=== PATIENT | female | born 1945 | race Caucasian/White ===

== ENCOUNTER → 2018-02-07 | Outpatient (CLI) | payer OTHER, MEDICARE ==
[~2018-02-07] MED LIST: 5-HTP100 MG PO; ACETAMINOPHEN-1 EAC1 PO; ACETAMINOPHEN-120 ML PO; ANALGESIC BA28.35 GM; ANALGESIC325 MG PO; ASPIRIN325 OR; B-COMPLEX-VITA1 EACH; BACTROBAN CREAM30 G1 TOP; CARAFATE1 GM/10 ML PO; CIPRO500 MG PO; COREG CR20 MG PO; COREG OR; DEXILANT60 MG OR; DOXYCYCLINE 10100 MG PO; FISH OIL 1,001000 MG; HYDROCHLOROTHIA25 M1 PO; KEFLEX500 MG PO; LUMIGAN2.5 ML; LYRICA 50 MG50 MG; MOBIC15 MG PO; MULTIVITAMINS; NITROSTAT0.4 MG; NORCO 5-325 TA1 EACH PO; OMEPRAZOLE20 M2 PO; POTASSIUM20 PO; PREMARIN0.625 MG PO; PRILOSEC 20 MG20 MG PO; PRILOSEC40 MG PO; PROTONIX40 MG PO; SIMVASTATIN40 MG PO; TOPROL XL25 MG; TRAMADOL 50 MG50 MG; VENTOLIN17 GM INH; VITAMIN D400 UNI1 OR; ZESTRIL20 MG; [UNRECOGNIZED DRUG - OTHER]
--- NOTE | 2018-02-07 11:13 | 2DMMODE ---
[place] [address] 2 D/M-MODE ECHOCARDIOGRAM Name: SHAN VERAS Room: [facility]#: [id number] Admission: 02/07/18 Attend Phys: Max Landers, Discharge: Date of : 49 Date of Service: 02/07/18 1113 Report #: [id number] THIS REPORT FOR: //name// APPROVED REPORT Study performed: 02/07/2018 10:01:24 EXAM: Comprehensive 2D, Doppler, and color-flow Echocardiogram Patient Location: Out-Patient Status: routine BSA: 1.56 HR: 60 bpm BP: 112/60 mmHg Other Information Study Quality: Good Indications Aortic Insuff. 2D Dimensions LVEF(%): 76.84 (>50%) IVSd: 11.47 (7-11mm) LVOT Diam: 19.67 (18-24mm) LVDd: 43.04 mm PWd: 9.71 (7-11mm) Ascending Ao: 26.97 (22-36mm) LVDs: 23.58 (25-40mm) Aortic Root: 24.37 mm Mckeon's LVEF: 76.84 % Volumes Left Atrial Volume (Systole) LA ESV Index: 17.30 mL/m2 Aortic Valve AoV Peak Saran.: 1.82 m/s AO Peak Gr.: 13.27 mmHg LVOT Max P.31 mmHg AO Mean Gr.: 6.93 mmHg LVOT Mean P.88 mmHg LVOT Max V: 1.04 m/s AO V2 VTI: 39.34 cm LVOT Mean V: 0.62 m/s IDRIS (VTI): 1.88 cm2 LVOT V1 VTI: 24.38 cm AI [place]: 2.64 m/s2 AI PHT: 434.63 [place] [address] 2 D/M-MODE ECHOCARDIOGRAM Name: SHAN VERAS Room: [facility]#: [id number] Admission: 02/07/18 Attend Phys: Max Landers, Discharge: Date of : 49 Date of Service: 02/07/18 1113 Report #: [id number] E/A Ratio: 0.88 MV Decel. Time: 275.57 ms MV E Max Saran.: 0.90 m/s MV PHT: 79.91 ms MVA (PHT): 2.75 cm2 TDI E/Lateral E': 12.86 E/Medial E': 9.00 Medial E' Saran.: 0.10 m/s Lateral E' Saran.: 0.07 m/s Pulmonary Valve PV Peak Saran.: 0.88 m/s PV Peak Gr.: 3.10 mmHg Tricuspid Valve TR Peak Gr.: 18.40 mmHg RVSP: 23.40 mmHg Left Ventricle The left ventricle is normal size. The left ventricle is normal size. There is normal LV segmental wall motion. Mild concentric left ventricular hypertrophy. There is normal left ventricular wall thickness. Left ventricular systolic function is normal. The left ventricular ejection fraction is within the normal range. LVEF is 65%. The left ventricular diastolic function is normal. Right Ventricle The right ventricle is normal size. The right ventricular systolic function is normal. Atria The left atrium size is normal. The right atrium size is normal. Aortic Valve Aortic valve is mildly calcified. Moderate aortic regurgitation. There is no aortic valvular stenosis. Mitral Valve The mitral valve is normal in structure. There is no mitral valve regurgitation noted. No evidence of mitral valve stenosis. Tricuspid Valve The tricuspid valve is normal in structure. Mild tricuspid regurgitation. The RVSP is __23.4 mmHg[place] [address] 2 D/M-MODE ECHOCARDIOGRAM Name: SHAN VERAS Room: [facility]#: [id number] Admission: 02/07/18 Attend Phys: Max Landers, Discharge: Date of : 49 Date of Service: 02/07/18 1113 Report #: [id number] The pulmonary valve is normal in structure. There is no pulmonic valvular regurgitation. Great Vessels The aortic root is normal in size. IVC is normal in size and collapses with >50% inspiration Pericardium There is no pericardial effusion. <Conclusion> LVEF is 65%. There is normal LV segmental wall motion. Aortic valve is mildly calcified. There is no aortic valvular stenosis. Moderate aortic regurgitation. No evidence of mitral valve stenosis. There is no mitral valve regurgitation noted. Mild tricuspid regurgitation. The RVSP is 23.4 mmHg. <ELECTRONICALLY SIGNED> By: Brett Joyner MD, FACC 02/07/18 1113 1113 111 Brett Joyner MD, FACC /INF
== END ==
LOC: M.ULTRA 01-05 15:40
DX: I08.2 Rheumatic disorders of both aortic and tricuspid valves (principal); I77.9 Disorder of arteries and arterioles, unspecified; G45.9 Transient cerebral ischemic attack, unspecified

== ENCOUNTER → 2019-03-13 | Outpatient (CLI) | payer OTHER, MEDICARE ==
--- NOTE | 2019-03-13 12:42 | 2DMMODE ---
[place] [address] 2 D/M-MODE ECHOCARDIOGRAM Name: EDASHAN Room: [facility]#: [id number] Admission: 03/13/19 Attend Phys: Max Landers, Discharge: Date of : 49 Date of Service: 03/13/19 1242 Report #: [id number] THIS REPORT FOR: //name// APPROVED REPORT Study performed: 03/13/2019 08:33:25 EXAM: Comprehensive 2D, Doppler, and color-flow Echocardiogram Patient Location: Out-Patient Status: routine BSA: 1.63 HR: 57 bpm BP: 120/70 mmHg Rhythm: NSR Other Information Study Quality: Good Indications Aortic Valve Disease 2D Dimensions IVSd: 11.95 (7-11mm) LVOT Diam: 18.80 (18-24mm) LVDd: 37.90 mm PWd: 10.96 (7-11mm) Ascending Ao: 28.25 (22-36mm) LVDs: 24.43 (25-40mm) Aortic Root: 31.84 mm Volumes Left Atrial Volume (Systole) LA ESV Index: 34.70 mL/m2 Aortic Valve AoV Peak Saran.: 1.83 m/s AO Peak Gr.: 13.35 mmHg LVOT Max P.23 mmHg AO Mean Gr.: 7.05 mmHg LVOT Mean P.75 mmHg LVOT Max V: 1.03 m/s AO V2 VTI: 42.52 cm LVOT Mean V: 0.59 m/s IDRIS (VTI): 1.65 cm2 LVOT V1 VTI: 25.21 cm AI [place]: 2.23 m/s2 AI PHT: 504.01 ms Mitral Valve E/A Ratio: 0.82 [place] [address] 2 D/M-MODE ECHOCARDIOGRAM Name: SHAN VERAS Room: [facility]#: [id number] Admission: 03/13/19 Attend Phys: Max Landers, Discharge: Date of : 49 Date of Service: 03/13/19 1242 Report #: [id number] MV Decel. Time: 233.53 ms MV E Max Saran.: 0.97 m/s MV PHT: 67.72 ms MVA (PHT): 3.25 cm2 TDI E/Lateral E': 10.78 E/Medial E': 13.86 Medial E' Saran.: 0.07 m/s Lateral E' Saran.: 0.09 m/s Pulmonary Valve PV Peak Saran.: 0.80 m/s PV Peak Gr.: 2.56 mmHg Tricuspid Valve RAP Estimate: 5.00 mmHg TR Peak Gr.: 20.67 mmHg RVSP: 25.00 mmHg PA Pressure: 25.00 mmHg Left Ventricle The left ventricle is normal size. There is normal LV segmental wall motion. There is normal left ventricular wall thickness. Left ventricular systolic function is normal. The left ventricular ejection fraction is within the normal range. LVEF is 60-65%. Grade I - abnormal relaxation pattern. Right Ventricle The right ventricle is normal size. The right ventricular systolic function is normal. Atria Left atrium is moderately dilated. The right atrium size is normal. Aortic Valve Mild aortic valve sclerosis. Mild to moderate aortic regurgitation. Mild aortic stenosis.mean gradient 7mmHg Mitral Valve The mitral valve is normal in structure. Mild mitral regurgitation. No evidence of mitral valve stenosis. Tricuspid Valve The tricuspid valve is normal in structure. Trace tricuspid regurgitation. No pulmonary hypertension[place] [address] 2 D/M-MODE ECHOCARDIOGRAM Name: SHAN VERAS Room: [facility]#: [id number] Admission: 03/13/19 Attend Phys: Max Landers, Discharge: Date of : 49 Date of Service: 03/13/19 1242 Report #: [id number] The pulmonary valve is normal in structure. There is no pulmonic valvular regurgitation. Great Vessels The aortic root is normal in size. IVC is normal in size and collapses >50% with inspiration. Pericardium There is no pericardial effusion. <Conclusion> LVEF is 60-65%. There is normal LV segmental wall motion Mild aortic stenosis. Mild to moderate aortic regurgitation. Mild mitral regurgitation. Grade I - abnormal relaxation pattern. Grade I - abnormal relaxation pattern. Left atrium is moderately dilated. <ELECTRONICALLY SIGNED> By: Brett Joyner MD, FACC 03/13/19 1242 1242 124 Brett Joyner MD, FACC /INF
== END ==
LOC: M.CRD 08:27
DX: I08.0 Rheumatic disorders of both mitral and aortic valves (principal)

== ENCOUNTER → 2021-03-10 | Outpatient (CLI) | payer MEDICARE ==
--- NOTE | 2021-03-10 12:53 | 2DMMODE ---
[place] [address] 2 D/M-MODE ECHOCARDIOGRAM Name: SHAN VERAS Room: [facility]#: [id number] Admission: 03/10/21 Attend Phys: Tamera Ojeda RN Discharge: Date of : 49 Date of Service: 03/10/21 1253 Report #: [id number] THIS REPORT FOR: cc: Vera Finch MD, K. Gay MD Liston, Michael J. MD [facility] ~ APPROVED REPORT Study performed: 03/10/2021 10:31:22 EXAM: Comprehensive 2D, Doppler, and color-flow Echocardiogram Patient Location: Out-Patient BSA: 1.57 HR: 72 bpm BP: 118/70 mmHg Other Information Study Quality: Good Indications Aortic Valve Disease 2D Dimensions IVSd: 9.69 (7-11mm) LVOT Diam: 20.79 (18-24mm) LVDd: 41.83 mm PWd: 9.69 (7-11mm) Ascending Ao: 27.55 (22-36mm) LVDs: 28.86 (25-40mm) Aortic Root: 30.93 mm Volumes Left Atrial Volume (Systole) LA ESV Index: 12.40 mL/m2 Aortic Valve AoV Peak Saran.: 1.96 m/s AO Peak Gr.: 15.30 mmHg LVOT Max P.64 mmHg AO Mean Gr.: 7.58 mmHg LVOT Mean P.10 mmHg LVOT Max V: 1.08 m/s AO V2 VTI: 38.83 cm LVOT Mean V: 0.66 m/s IDRIS (VTI): 2.27 cm2 LVOT V1 VTI: 25.99 cm AI Story: 2.28 m/s2 AI PHT: 477.77 [place] [address] 2 D/M-MODE ECHOCARDIOGRAM Name: SHAN VERAS Room: [facility]#: [id number] Admission: 03/10/21 Attend Phys: Tamera Ojeda RN Discharge: Date of : 49 Date of Service: 03/10/21 1253 Report #: [id number] Mitral Valve E/A Ratio: 0.90 MV Decel. Time: 256.92 ms MV E Max Saran.: 0.94 m/s MV PHT: 74.51 ms MVA (PHT): 2.95 cm2 TDI E/Lateral E': 13.43 E/Medial E': 11.75 Medial E' Saran.: 0.08 m/s Lateral E' Saran.: 0.07 m/s Pulmonary Valve PV Peak Saran.: 0.82 m/s PV Peak Gr.: 2.68 mmHg Left Ventricle The left ventricle is normal size. There is normal LV segmental wall motion. There is normal left ventricular wall thickness. Left ventricular systolic function is normal. LVEF is 60-65%. Grade I - abnormal relaxation pattern. Right Ventricle The right ventricle is normal size. The right ventricular systolic function is normal. Atria The left atrium size is normal. The right atrium size is normal. Aortic Valve Mild aortic valve sclerosis. Mild to moderate aortic regurgitation. Mild aortic stenosis. Mitral Valve The mitral valve is normal in structure. Mild mitral regurgitation. No evidence of mitral valve stenosis. Tricuspid Valve The tricuspid valve is normal in structure. There is no tricuspid valve regurgitation noted. Pulmonic Valve The pulmonary valve is normal in structure. There is no pulmonic valvular regurgitation[place] [address] 2 D/M-MODE ECHOCARDIOGRAM Name: LINDSEY VERASHATTIE Zuluaga Room: [facility]#: [id number] Admission: 03/10/21 Attend Phys: Tamera Ojeda RN Discharge: Date of : 49 Date of Service: 03/10/21 1253 Report #: [id number] The aortic root is normal in size. IVC is normal in size and collapses >50% with inspiration. Pericardium There is no pericardial effusion. <Conclusion> The left ventricle is normal size. There is normal left ventricular wall thickness. Left ventricular systolic function is normal. LVEF is 60-65%. Grade I - abnormal relaxation pattern. Mild to moderate aortic regurgitation. Mild aortic valve sclerosis. Mild aortic stenosis. Mild mitral regurgitation. IVC is normal in size and collapses >50% with inspiration. <ELECTRONICALLY SIGNED> By: Max Landers MD, FACC 03/10/21 1253 1253 1253 Max Landers MD, FACC /INF
== END ==
LOC: M.CRD 10:27
PROVIDERS: ATTEND Registered Nurse
DX: I08.0 Rheumatic disorders of both mitral and aortic valves (principal)

== ENCOUNTER → 2021-12-08 | Outpatient (CLI) | payer MEDICARE | LOC: M.MRI 12:46 | PROVIDERS: ATTEND Nurse Practitioner Family | DX: S46.012A Strain of muscle(s) and tendon(s) of the rotator cuff of left shoulder, initial encounter (principal); M25.812 Other specified joint disorders, left shoulder; M25.412 Effusion, left shoulder; X58.XXXA Exposure to other specified factors, initial encounter; Y93.89 Activity, other specified; Y92.89 Other specified places as the place of occurrence of the external cause; Y99.8 Other external cause status; M19.012 Primary osteoarthritis, left shoulder ==